=== PATIENT | male | born 1940 | race Caucasian/White ===

== ENCOUNTER 2024-08-14 08:41 | Outpatient (CLI) | payer MEDICARE | END 2024-08-14 23:59 | disposition home or self-care (01) | LOC: US 08:41 | PROVIDERS: ATTEND Surgery | DX: R33.9 Retention of urine, unspecified (principal); K40.90 Unilateral inguinal hernia, without obstruction or gangrene, not specified as recurrent | CPT/HCPCS: 76870; 93976 ==